=== PATIENT | male | born 1960 | race Caucasian/White ===

== ENCOUNTER 2023-06-23 10:33 | Emergency (ER) | payer SELFPAY ==
--- NOTE | ~2023-06-23 | XR_ITS ---
EXAMINATION: XR chest 1V portable DATE: 06/23/2023 11:29 INDICATION: Left chest pain. TECHNIQUE: A single frontal view of the chest was obtained. COMPARISON: Chest 2 views 05/01/2011 FINDINGS: There is mild scarring at left lung apex. There is no pneumonia, pleural effusion, or pneum othorax. The heart size is normal. IMPRESSION: 1. Stable mild scarring at left lung apex. Reviewed, dictated and finalized at location E.
--- NOTE | 2023-06-23 10:34 | ECG_ITS ---
Measurements Intervals [place] Rate: 66 P: 48 MT: 213 QRS: 55 QRSD: 91 T: 49 QT: 384 QTc: 403 Interpretive Statements SINUS RHYTHM WITH FIRST DEGREE AV BLOCK BASELINE WANDER- I, II, III, AVF, V3 BORDERLINE ECG NO PREVIOUS ECG AVAILABLE FOR COMPARISON Electronically Signed On 06-23-2023 10:58:03 CDT by Jose Vazquez D.O.
[2023-06-23 10:46] VITALS: BP 168/95; PULSE 76; RESP 12; O2SAT 99
[2023-06-23 11:03] LABS: Basophils Absolute Auto 0.1 K/mm3 (0.0-0.1); Basophils Percent Auto 1.9 % (0.2-1.2); Eosinophils Absolute Auto 0.7 K/mm3 (0-0.3); Eosinophils Percent Auto 11.3 % (0-4.4); Hematocrit 48.7 % (42.0-52.0); Hemoglobin 16.5 g/dL (14.0-18.0); Immature Granulocyte Absolute 0.02 K/mm3 (0.00-0.031); Immature Granulocyte Percent A 0.3 % (0-0.5); Lymphocytes Absolute Auto 2.06 K/mm3 (0.9-3.2); Lymphocytes Percent Auto 32.9 % (18.3-44.2); Mean Corpuscular HGB Conc 33.9 g/dl (32-36); Mean Corpuscular Volume 91.4 fl (80-100); Mean Platelet Volume 9.5 fl (7.4-10.4); Monocytes Absolute Auto 0.6 K/mm3 (0.1-0.6); Monocytes Percent Auto 9.9 % (2.6-8.5); Neutrophils Absolute Auto 2.7 K/mm3 (1.3-6.7); Neutrophils Percent Auto 43.7 % (45.5-73.1); Platelet Count Result 239 k/mm3 (150-375); Red Blood Count 5.33 M/mm3 (4.6-6.20); Red Cell Distribution Width 12.1 % (11.5-14.5); White Blood Count 6.3 K/mm3 (4.5-10.0)
[2023-06-23 11:06] LABS: Alanine Aminotransferase 58 U/L (6-50); Albumin Level 4.5 g/dL (3.5-5.1); Alkaline Phosphatase 39 U/L (38-126); Anion Gap 5 mmol/L (4-12); Aspartate Amino Transferase 41 U/L (17-59); Bilirubin,Total 0.7 mg/dL (0.2-1.3); Blood Urea Nitrogen 21 mg/dL (9-20); Calcium 9.7 mg/dL (8.4-10.2); Carbon Dioxide 29 mmol/L (22-30); Chloride 103 mmol/L (98-107); Estimated Glomerular Filt Rate > 60; Glucose 155 mg/dL (65-110); Lipase 86 U/L (23-300); Potassium 3.8 mmol/L (3.4-5.0); Sodium 137 mmol/L (137-145)
[2023-06-23 11:08] LABS: Prothrombin Time 13.6 Seconds (11.1-14.7)
[2023-06-23 11:17] LABS: Troponin I < 0.012 ng/mL (0.000-0.034)
[2023-06-23] MEDS: ASPIRIN 81 MG CHEWABLE TABLET 324 MG PO (11:28)
--- NOTE | 2023-06-23 11:28 | PC.NURSE ---
Pt stated he took 2 (81mg ) aspirin prior to arrival.
--- NOTE | 2023-06-23 13:30 | ECG_ITS ---
Measurements Intervals [place] Rate: 53 P: 32 CO: 224 QRS: 38 QRSD: 93 T: 48 QT: 412 QTc: 388 Interpretive Statements SINUS BRADYCARDIA WITH FIRST DEGREE AV BLOCK BORDERLINE ECG COMPARED TO ECG 06/23/2023 10:38:14 SINUS BRADYCARDIA NOW PRESENT Electronically Signed On 06-23-2023 16:05:19 CDT by Jose Vazquez D.O.
[2023-06-23 13:47] LABS: Troponin I < 0.012 ng/mL (0.000-0.034)
[2023-06-23 13:49] LABS: CRP < 0.5 mg/dL (<1.0); Creatine Kinase 136 U/L (55-170)
[2023-06-23 14:25] VITALS: BP 148/96; PULSE 56; RESP 16; O2SAT 98
--- NOTE | 2023-06-23 14:41 | ED.CHESTPAIN ---
HPI - Chest Pain General Chief Complaint: Chest Pain Stated Complaint: chest pain Time Seen by Provider: 06/23/23 11:04 Source: patient and family Mode of arrival: ambulatory Limitations: no limitations History of Present Illness HPI narrative: 62-year-old with a history of hypertension presents to the ER with a complaint of sharp pain in his left chest since this morning. He also stated that he was short of breath initially and his fingers were numb and tingly. Has no previous history of CAD had a stress test done 10 years ago which was unremarkable. Patient's was at the bedside stated that 3 days ago he was shoveling in yard . He denies any cough, fever or chills. MD complaint: chest pain Onset (ago): hour(s) (2) Timing of current episode: episodic Pain location: left chest Pain radiation: none Severity: mild Quality: sharp Relieving factors: nothing Exacerbating factors: nothing Risk Factors Coronary artery disease risk factors: none Related Data Home Medications Medication Instructions Recorded Confirmed alprazolam 0.5 mg tablet mg 06/23/23 06/23/23 lisinopril 10 mg tablet mg 06/23/23 Allergies Allergy/AdvReac Type Severity Reaction Status Date / Time No Known Allergies Allergy Mild Verified 06/23/23 10:53 Review of Systems Review of Systems: All systems reviewed & are unremarkable except as noted in HPI and below Constitutional: Constitutional: Reports no additional constitutional complaints Eyes: Eyes: Reports no additional eye complaints ENT: Reports system reviewed and no additional complaints, except as documented Cardiovascular: Cardiovascular: Reports as per HPI Respiratory: Respiratory: Reports as per HPI Gastrointestinal: Gastrointestinal: Reports no additional gastrointestinal complaints Musculoskeletal: Musculoskeletal: Reports no additional musculoskeletal complaints Integumentary/Breasts: Skin/Breast: Reports system reviewed and no additional complaints, except as docu Neurologic: Reports system reviewed and no additional complaints, except as documented Psychiatric: Psychiatric: Reports no additional psychiatric complaints Exam Narrative: GENERAL: Well-appearing, well-nourished, and in no acute distress. HEAD: Normocephalic, atraumatic. EYES: PERRLA and EOMI. NECK: Supple. CHEST: Clear to auscultation. No respiratory distress. HEART: Regular rate and rhythm. No murmur heard. Normal peripheral pulses. ABDOMEN: Soft, nontender, nondistended, normal active bowel sounds. EXTREMITIES: Normal range of motion. No edema. SKIN: Warm, dry, no rash. NEURO: No focal deficits. Alert and oriented x3. PSYCH: Normal mood and affect. Course Course Emergency Course: Patient had no further episodes of chest pain here in the ER. I did inform him about his EKGs, lab work. Advised him to follow up with Dr. Cruz in the next couple days for re-evaluation of his blood pressure and and also schedule a stress test. He feels comfortable going home. Vital Signs Vital signs: Vital Signs Pulse Rate 76 06/23/23 10:46 Respiratory Rate 12 06/23/23 10:46 Blood Pressure 168/95 H 06/23/23 10:46 Pulse Oximetry 99 06/23/23 10:46 Oxygen Delivery Room Air 06/23/23 10:46 Pulse Rate 56 L 06/23/23 14:25 Respiratory Rate 16 06/23/23 14:25 Blood Pressure 148/96 H 06/23/23 14:25 Pulse Oximetry 98 06/23/23 14:25 Oxygen Delivery Room Air 06/23/23 10:52 MDM - Chest Pain Differential Diagnosis Differential diagnosis: Likely unstable angina pectoris, atypical chest pain, st elevation myocardial infarction, costochondritis and chest pain Lab Data Attestation: I reviewed the patient's lab results. 06/23/23 10:49 06/23/23 10:49 Labs: Lab Results 06/23/23 06/23/23 Range/Units 10:49 13:19 WBC 6.3 (4.5-10.0) K/mm3 RBC 5.33 (4.6-6.20) M/mm3 Hgb 16.5 (14.0-18.0) g/dL Hct 48.7 (42.0-52.0) % MCV 91.4 (80-100)
== END 2023-06-23 15:04 | disposition home or self-care (01) ==
PROVIDERS: Emergency Provider Family Medicine; PCP Internal Medicine
DX: R07.9 Chest pain, unspecified (principal); R00.1 Bradycardia, unspecified
CPT/HCPCS: 36415; 71045; 80053; 82550; 83690; 84484; 85025; 85610; 85730; 86140; 93005; 99284; A9270

== ENCOUNTER 2024-08-13 08:32 | Emergency (ER) | payer MEDICARE, SELFPAY ==
--- NOTE | ~2024-08-13 | XR_ITS ---
EXAMINATION: XR chest 2V DATE: 08/13/2024 10:02 INDICATION: Chest pain and dizziness TECHNIQUE: PA and lateral views of the chest were obtained. COMPARISON: Chest radiograph dated 06/23/2023 FINDINGS: The lungs are clear with no focal airspace opacities, pulmonary edema, pleural effusion or pneumothor ax. The cardiomediastinal silhouette is normal. Moderate thoracic spondylosis. IMPRESSION: 1. No acute cardiopulmonary disease. Reviewed, dictated and finalized at location A.
--- NOTE | 2024-08-13 08:32 | ECG_ITS ---
Test Date: 2024-08-13 08:38:16 Measurements Intervals [place] Rate: 60 P: 6 MD: 209 QRS: 67 QRSD: 89 T: 64 QT: 409 QTc: 411 Interpretive Statements SINUS RHYTHM NORMAL ECG No previous ECG available for comparison Electronically Signed On 08-13-2024 13:01:22 CDT by Magnus Ramos M.D.
--- OUTSIDE RECORDS SUMMARY | 2024-08-13 08:33 | XMS_ITS | CONTINUITY OF CARE DOCUMENT ---
Author Name lanre de dios Address Unknown Organization [facility] Address [address] [place] [address] [address] [place] [address] Phone [phone] Care Team Providers Care Instructor Adjunct Pharmacy Technician Name Role Phone Skip GUILLERMO, Radha Unavailable [phone] ALBERTO VIVAR MD Unavailable [phone] ALBERTO VIVAR MD Unavailable PROBLEMS Condition Status Date Provider Notes ESSENTIAL HYPERTENSION active Radha Valdivia MD SHORTNESS OF BREATH SLEEP APNEA ON CPAP active Radha Valdivia MD FAMILY HISTORY OF HEART DISEASE active Narinder Valdivia MD ENCOUNTERS Date Type Provider Location Encounter Diag nosis - In-person encounter Office Visit Radha Valdivia MD [facility] - In-person encounter Office Visit Radha Valdivia MD [facility] ESSENTIAL HYPERTENSIONSHORTNESS OF BREATH SLEEP APNEA ON CPAPFAMILY HISTORY OF HEART DISEASE VITAL SIGNS Date Observation Value Provider blood pressure, diastolic 81 mm[Hg] Hanane Baker blood pressure, systolic 131 mm[Hg] Paula Baker pulse rate 72 /min Caroline Baker oxygen saturation, oximetry 97 % Caroline Baker respiratory rate E&M 16 /min Caroline Baker weight E&M 242 [lb_av] Caroline Baker blood pressure, diastolic 82 mm[Hg] Hanane Baker blood pressure, systolic 136 mm[Hg] Paula Baker pulse rate 65 /min Caroline Baker oxygen saturation, oximetry 97 % Caroline Baker respiratory rate E&M 16 /min Caroline Baker weight E&M 235 [lb_av] Caroline Baker ALLERGIES No Known Drug Allergies RESULTS Date Observation Value Provider Reference Range Interpretation Location platelet count 218 10*3/mm3 [facility] hematocrit, blood 46.9 % [facility] lipoprotein, beta, serum, point, quantitative, calculated 115 mg/dL [facility] cholesterol, serum 164 mg/dL [facility] alanine aminotransferase (SGPT), serum 120 1/L [facility] aspartate aminotransferase (SGOT), serum 54 1/L [facility] creatinine, serum 1.3 mg/dL [facility] potassium, serum 4.2 mmol/L [facility] sodium, serum 137 mmol/L [facility] international normalized ratio (INR) 1.3 Ilene Slade prothrombin time (patient) 12.5 s Ilene Slade HISTORY OF MEDICATION USE Medication Status Instructions Dates Provider Indications Com ments HYDROCHLOROTHIAZIDE 12.5 MG ORAL CAPSULE active ONE TAB. DAILY Caroline Baker ASPIRIN 81 MG ORAL TABLET active ONE TAB. DAILY Caroline Baker ALPRAZOLAM 0.5 MG ORAL TABLET active daily Caroline Baker LISINOPRIL 10 MG ORAL TABLET active ONE TAB. DAILY Caroline Baker SOCIAL HISTORY Date Observation Value Provider social history reviewed E&M reviewed Radha Valdivia MD social history E&M Marital Statu s: L karla with family/friends E thnicity: Radha Valdivia MD drug use none Radha Valdivia MD social history reviewed E&M reviewed Radha Valdivia MD physical exercise, f requency, days per week yes [employer] caffeine use, averag e drinks per day yes [employer] alcohol use, average drinks per day none [employer] smoking status Non-smoker [employer] MENTAL STATUS Date Observation Value Provider assessment of judgme nt and insight E&M Alert and oriented to time, place and person. Mood and affect are normal. Radha Valdivia MD assessment of judgme nt and insight E&M Alert and oriented to time, place and person. Mood and affect are normal. Radha Valdivia MD INSURANCE PROVIDERS Payer name Policy type / Coverage type Katy shankar democrat ID [employer] [facility] Other [id number] TREATMENT PLAN Date Name Performer follow up: H is updated medication list for this problem includes: Lisinopril 10 Mg Tabs (Lisinopril) ..... One tab. daily Aspirin 81 Mg Tabs (Aspirin) ..... One tab. daily Hydrochlorothiazide 12.5 Mg Caps (Hydrochlorothiazide) ..... One tab. daily BP today: 131/81 Prior BP: 136/82 (10/24/2011) E chocardiogram: Normal left ventricular systolic function. Normal left ventricular size. Mild concentric left ventricular hypertrophy. Normal left ventricular diastolic function. Normal E/E` 6.2. Left ventricular ejection fraction is estimated at 60%. The left atrium is normal in size. The mitral valve is normal in appearance and function. Aortic valve leaflets appear structurally normal. Velocities, as well as gradients across the aortic valve are normal. No evidence of aortic insufficiency. There is trace physiologic tricuspid valve regurgitation. Right ventricular systolic pressure is within normal limits. IVC is normal in size with normal respiratory response. Estimated peak pulmonary artery systolic pressure is 21.0 mmHg. - CNE (10/29/2011) C ardiac Cath: Normal coronary arteries. Normal left ventricular systolic function. - CH (10/30/2011) H CT: 46.9 (10/24/2011) Platelets: 218 (10/24/2011) C reat: 1.3 (10/24/2011) Na+: 137 (10/24/2011) K+: 4.2 (10/24/2011) SGOT (AST): 54 (10/24/2011) SGPT (ALT): 120 (10/24/2011) Radha Valdivia MD new pt.: H is updated medication list for this problem includes: Lisinopril 10 Mg Tabs (Lisinopril) ..... One tab. daily Aspirin 81 Mg Tabs (Aspirin) ..... One tab. daily Hydrochlorothiazide 12.5 Mg Caps (Hydrochlorothiazide) ..... One tab. daily BP today: 136/82 Prior BP: / () Radha Valdivia MD new pt.: H is updated medication list for this problem includes: Lisinopril 10 Mg Tabs (Lisinopril) ..... One tab. daily Aspirin 81 Mg Tabs (Aspirin) ..... One tab. daily Hydrochlorothiazide 12.5 Mg Caps (Hydrochlorothiazide) ..... One tab. daily Orders: E KG ([id number]) BP today: 136/82 Radha Valdivia MD HISTORY OF PROCEDURES Procedure Date Procedure Name Provider Procedure Notes S rubén EKG Radha Valdivia MD completed
--- OUTSIDE RECORDS SUMMARY | 2024-08-13 08:33 | XMS_ITS | Clinical Summary ---
Author Organization [facility] Address [address] [place] [id number] Care Team Providers Care Field Artillery Crewmember Name Role Phone Unavailable Primary Care Provider Unavailabl e Immunizations Immunization Administration Dates Next Due MODERNA COVID-19 (12+) MRNA, LNP-S, PF, 100 MCG/ 0.5 ML DOSE 05/11/2020,04/13/2020 Social History Tobacco Use Types Packs/Day Years Used Date Smoking Tobacco: Never Assessed Sex and Gender Information Value Date Recorded Sex Assigned at Not on file Legal Sex Male 7:17 PM CDT Gender Identity Not on file Sexual Orientation Not on file Last Filed Vital Signs Vital Sign Reading Time Taken Comments Blood Pressure 142/78 04/20/2015 1:34 PM PROCESS WORKER Pulse 70 04/20/2015 1:34 PM PROCESS WORKER Temperature - - Respiratory Rate - - Oxygen Saturation - - Inhaled Oxygen Concentration - - Weight 95.3 kg (210 lb) 04/20/2015 1:34 PM PROCESS WORKER Height 182.9 cm (6') 04/20/2015 1:34 PM PROCESS WORKER Body Mass Index 28.48 04/20/2015 1:34 PM PROCESS WORKER Plan of Treatment Health Maintenance Due Date Last Done Comments Colorectal Cancer Screening Colonoscopy (10 Years) 1958 Hepatitis C 1976 DTaP, Tdap and Td Vaccines ( 1 - Tdap) 1977 Pneumococcal Vaccine: 50+ Years (1 of 1 - PCV) 2008 Zoster Vaccines (1 of 2) 2008 COVID-19 Vaccine (3 - 2023-2 5 season) 2023 05/11/2020, 04/13/2020 RSV Immunization or 60+ Years (1 - 1-dose 75+ series) 2033 Meningococcal B Vaccine Aged Out No l onger eligible based on patient's age to complete this topic Meningococcal Vaccine Aged Out No juan jose mayte eligible based on patient's age to complete this topic RSV Immunizations Under 20 Months Aged Out No longer eligible b ased on patient's age to complete this topic
--- OUTSIDE RECORDS SUMMARY | 2024-08-13 08:33 | XMS_ITS | Clinical Summary ---
Author Organization [facility] Administrative Offices Address [address] [place] [address] Care Team Providers Care Geochemical Laboratory Technician Name Role Phone Unavailable Primary Care Provider Unavailabl e Allergies No known active allergies Medications lisinopriL (PRINIVIL) 10 mg tablet Take 1 Tablet by mouth daily. 03/12/2023 Active ALPRAZolam (XANAX) 0.5 mg tablet Take 1 Tablet by mouth 2 times daily. Active ergocalciferol (VITAMIN D2) 50,000 unit capsule Take 1 Capsule by mouth every 7 days. 11/18/2023 Active Social History Tobacco Use Types Packs/Day Years Used Date Smoking Tobacco: Never Smokeless Tobacco: Never Tobacco Cessation:Counseling Given: Not Answered Alcohol Use Standard Drinks/Week Comments Yes 0 (1 standard drink = 0.6 oz pur e alcohol) occ Feeling Safe Answer Date Recorded Are you in a relationship wi th someone who hurts you emotionally and/or physically? No 02/11/2024 Sex and Gender Information Value Date Recorded Sex Assigned at Not on file Legal Sex Male 4:27 PM CDT Gender Identity Not on file Sexual Orientation Not on file Last Filed Vital Signs Vital Sign Reading Time Taken Comments Blood Pressure 122/87 02/11/2024 2:02 PM BAIL BONDSMAN Pulse 58 02/11/2024 2:02 PM BAIL BONDSMAN Temperature 36.7 C (98.1 F) 02/11/2024 1:39 PM BAIL BONDSMAN Respiratory Rate 12 02/11/2024 1:39 PM BAIL BONDSMAN Oxygen Saturation 100% 02/11/2024 2:02 PM BAIL BONDSMAN Inhaled Oxygen Concentration - - Weight 96.6 kg (213 lb) 02/11/2024 11:16 AM BAIL BONDSMAN Height 182.9 cm (6') 02/11/2024 11:16 AM BAIL BONDSMAN Body Mass Index 28.89 02/11/2024 11:16 AM BAIL BONDSMAN Plan of Treatment Health Maintenance Due Date Last Done Comments Pre-Diabetes and Diabetes Screening 1960 DTAP/TDAP/TD VACCINES (1 - Tdap) 1977 COLORECTAL SCREENING 11/26/2003 Colorectal Cancer Screening 11/26/2003 FIT-DNA Q 3 years 11/26/2003 FIT/FOBT Q 1 year 11/26/2003 Flex Sig/CT Colonography Q 5 years 11/26/2003 PNEUMOCOCCAL VACCINE 50+ YEA RS (1 of 1 - PCV) 2008 ZOSTER VACCINE (1 of 2) 2008 INFLUENZA VACCINE (#1) 2023 9, 01/19/2018, 03/01/2015, Additional history exists RSV VACCINE (60+ or ) (1 - 1-dose 75+ series) 2033 Insurance MEDICARE PART A AND B
--- OUTSIDE RECORDS SUMMARY | 2024-08-13 08:34 | XMS_ITS | Data Portability ---
Author Organization [place] - [facility] [employer], Main Office Address [address] [place] [address] Assessment Encounter Date Assessment Date Assessment LastModified by Organization Details LastModified Time 09/11/2022 09/11/2022 No EKG functioning in clinic today blood work echo 2 week Holter follow-up 6 months go back on lisinopril he has been off for about a week [email or web address] Not available 09/11/2022 21:49:13 03/12/2023 03/12/2023 Will continue with current therapy will see me back in 6 months [email or web address] Not available 03/12/2023 21:54:26 Plan of Treatment Reminders Order Date Submit Date Provider Last Modified By Organization Details Last Modified Time Details Appointments None recorded. Lab noninvasive colorectal cancer DNA + occult blood screening, QL, stool 2022 023 [email or web address] [facility] (Cologuard Orders Only), [address], [address], [place], [address], 4 08:35:54 PSA, serum or plasma 2022 023 CHAVA Not available 3 15:12:49 noninvasive colorectal cancer DNA + occult blood screening, QL, stool 2022 023 CHAVA [facility] (Cologuard Orders Only), [address], [address], [place], [address], 3 23:50:51 CMP, serum or plasma 2022 023 [email or web address] Not available 3 09:39:50 T4, free, serum 2022 023 cyahl Not available 09:39:51 TSH, serum or plasma 2022 023 cyahl Not available 09:39:51 T3, free, serum or plasma 2022 023 cyahl Not available 09:39:51 lipid panel, serum 2022 023 CHAVA Not available 3 11:30:09 CBC w/ auto diff 2022 023 cyahl Not available 09:39:51 Referral None recorded. Procedures None recorded. Surgeries None recorded. Imaging holter monitor - 2wk holter 2022 023 [facility], [address] [place] [address], [place], [address], 3 08:53:29 , echocardiog aubrey 2022 023 [facility], [address] [place] [address] [address] [facility], [place], [address], 4 15:23:17 Medication Orders lisinopril 10 mg tablet 2022 023 [id number], [address] [place], [place], [id number], 3 17:11:06 Patient TargetsNo targets recorded. Patient InstructionsNo instructions recorded. Reason for Referral None Reported. Results Created Date Observation Date Name Description Value Unit Range Abnormal Flag Note LastModifiedBy Organization Detail LastModifiedTime 03/11/20 24 03/11/2024 COLOG UARD cologuard result Cancel led - Order d not applic able Not Available [facility] (Cologuard Orders Only) [address], [place], [address], 03/11/2024 09:17:33 09/12/19 23 09/11/2022 COLOG UARD cologuard result Cancel led - Duplic ate Order not applic able Not Available [facility] (Cologuard Orders Only) [address], [place], [address], 09/11/2022 23:50:51 08/30/19 22 08/29/2021 COLOG UARD cologuard result cancel led - order d not applic able Not Available [facility] (Cologuard Orders Only) [address], [place], [address], 08/29/2021 06:42:27 10/07/19 23 09/16/2022 francois r monit or No observ ation record ed. [facility] [address], [place], [address], 02/13/2023 20:38:44 10/10/19 23 09/16/2022 francois r monit or No observ ation record ed. [facility] [address], [place], [address], 02/13/2023 20:38:45 06/23/19 24 06/23/2023 XR, chest No observ ation record ed. [email or web address] [address], [place], [address], 09/28/2023 09:15:53 Result Notes None recorded. Problems Name Problem SNOMED Code Status Onset Date Resolution Date Notes Provider Name and Address Organization Details Recorded Time Benign essential hypertension 7583390 Active Not Available [facility] 3 14:55:41 Backache 318614244 Active 2022 Not Available [facility] 3 14:55:41 Liver enzymes outside reference range 391994493 Active Not Available [facility] 3 14:55:41 [place] 458150124 Active Not Available [facility] 3 14:55:41 Anxiety 33580852 Active Not Available [facility] 3 14:55:41 Disturbance in sleep behavior 41229580 Active Not Available [facility] 14:55:41 Upper respiratory infection 98021869 Active 2022 Not Available [facility] 14:55:41 Bradycardia 70836477 Active 2022 Trevon Sharp, MEGHANA null, [place] [facility] 17:36:54 Problem Notes None recorded. Procedures Surgical History Date Name Laterality Status Provider Name and Address Organization Details Recorded Time Back Surgery completed Not Available [facility] 05/28/2022 14:54:10 Knee Surgery completed Not Available [facility] 05/28/2022 14:54:10 Elbow arthroscopy/s urgery completed Not Available [facility] 05/28/2022 14:54:10 Imaging Results Imaging Date Name Status LastModified by Organiz ation Details LastModified Time 09/16/2022 holter monitor completed [email or web address] [facility] [address], [place], [address], 02/13/2023 20:38:44 09/16/2022 holter monitor completed [facility] [address], [place], [address], 02/13/2023 20:38:45 06/23/2023 XR, chest completed [email or web address] [facility] [address] [facility] [address], [place], [address], 09/28/2023 09:15:53 Procedure Notes None recorded. Medical Equipment None Reported. Allergies No known drug allergies Medications Name Sig Start Date Stop Date Status Note LastModified by Organization Details LastModified Time amoxicillin 500 mg capsule TK 1 C PO QID TAT 03/01 completed Not Available Not Available Not Available azithromyci n 250 mg tablet Take 1 dose pk by oral route as directed. 03/12 completed Not Available Not Available Not Available Nystop 100,000 unit/gram topical powder APPLY TOPICALLY TO THE AFFECTED AREA TWICE DAILY 03/07 completed Not Available Not Available Not Available prednisone 20 mg tablet 07/21 completed Not Available Not Available Not Available clindamycin HCl 150 mg capsule 07/21 completed Not Available Not Available Not Available valacyclovi r 500 mg tablet TAKE 1 TABLET BY MOUTH EVERY DAY 05/20 completed Not Available Not Available Not Available ciprofloxac in 500 mg tablet 07/21 completed Not Available Not Available Not Available hydrocodone 10 mg-acetamin ophen 325 mg tablet 11/12 completed Not Available Not Available Not Available alprazolam 0.5 mg tablet TAKE 1 TABLET BY MOUTH TWICE DAILY active Not Available Not Available No t Available amoxicillin 875 mg tablet 05/20 completed Not Available Not Available Not Available gentamicin 0.3 % eye drops 05/20 completed Not Available Not Available Not Available cephalexin 500 mg capsule 11/18 completed Not Available Not Available Not Available tobramycin 0.3 % eye drops 05/20 completed Not Available Not Available Not Available lisinopril 10 mg tablet TAKE 1 TABLET BY MOUTH DAILY 2022 active Not Available Not Available Not Avai lable hydrochloro thiazide 25 mg tablet TK 1 T PO ONCE D. CAN USE ON DAYS THAT SWELLING IS WORSE 03/01 completed Not Available Not Available Not Available diazepam 5 mg tablet TK 1/2 T PO BID 03/06 completed Not Available Not Available Not Available amoxicillin 875 mg-potassiu m clavulanate 125 mg tablet TK 1 T PO Q 12 H TAT 11/12 completed Not Available Not Available Not Available Cialis 20 mg tablet 1 tablet 30 mins before intercour se no more then 1 in 24 hours active Not Available Not Available No t Available sildenafil (pulmonary hypertensio n) 20 mg tablet take 3tablets 30mins before intercour se 03/06 completed Not Available Not Available Not Available zolpidem ER 12.5 mg tablet,exte nded release,mul tiphase TAKE 1 TABLET BY MOUTH EVERY NIGHT AT BEDTIME active Not Available Not Available No t Available BD Ultra-Fine Short Pen Needle 31 gauge x 08/12 completed Not Available Not Available Not Available Zirgan 0.15 % eye gel APPLY TO BOTH EYES FOUR TIMES DAILY 05/20 completed Not Available Not Available Not Available Vicodin ES 7.5 mg-300 mg tablet 08/10 completed Not Available Not Available Not Available Tresiba FlexTouch U-200 insulin 200 unit/mL (3 mL) subcutaneou s pen 07/21 completed Not Available Not Available Not Available Vitals Date Recorded Body mass index (BMI) Body height Heart rate Body temperature Body weight Systolic blood pressure Diastolic blood pressure Provider Name and Address Organization Details Last Updated DateTime 1 30.9 kg/m2 185.42 cm 72 /min 97.8 [degF] 276266. 61 g 130 mm[Hg] 80 mm[Hg] Not Available [facility] 3 14:54:59 Date Recorded Body mass index (BMI) Body height Heart rate Body temperature Body weight Systolic blood pressure Diastolic blood pressure Provider Name and Address Organization Details Last Updated DateTime 2 31 kg/m2 185.42 cm 58 /min 96.3 [degF] 674209. 21 g 142 mm[Hg] 80 mm[Hg] Not Available [facility] 3 14:54:59 Date Recorded Body mass index (BMI) Body height Heart rate Body temperature Body weight Systolic blood pressure Diastolic blood pressure Provider Name and Address Organization Details Last Updated DateTime 2 30.9 kg/m2 185.42 cm 64 /min 98.4 [degF] 179744. 61 g 122 mm[Hg] 74 mm[Hg] Not Available [facility] 3 14:54:59 Date Recorded Body height Body mass index (BMI) Body weight Body temperature Heart rate Systolic blood pressure Diastolic blood pressure Provider Name and Address Organization Details Last Updated DateTime 3 185.42 cm 26.7 kg/m2 68223.6 6 g 97.8 [degF] 58 /min 140 mm[Hg] 90 mm[Hg] MEGHANA Barbosa Kashmi 3 15:35:33 Date Recorded Body height Body mass index (BMI) Body weight Body temperature Heart rate Oxygen saturation Oxygen saturation in Arterial blood by Pulse oximetry Systolic blood pressure Diastolic blood pressure Provider Name and Address Organization Details Last Updated DateTime 3 185.42 cm 27.8 kg/m2 16579.9 9 g 98.1 [degF] 57 /min 98 % 98 % 144 mm[Hg] 88 mm[Hg] Carrie sommers CMA Kashmi 15:19:42 Social History Question Answer Notes LastModified by Organizat ion Details LastModified Time Tobacco Smoking Status Never Smoker Not Available [facility] 05/28/2022 14:54:01 Do You Have An Advance Directive? No MIGRATION.71622 06841 Information not available 05/28/2022 Do You Wear A Helmet When Biking? Yes MIGRATION.74808 27760 Information not available 05/28/2022 Are You Blind Or Do You Have Difficulty Seeing? No MIGRATION.07229 11296 Information not available 05/28/2022 What Is Your Level Of Caffeine Consumption? Moderate MIGRATION.74507 45862 Information not available 05/28/2022 How Much Tobacco Do You Chew? None MIGRATION.96247 28436 Information not available 05/28/2022 In The 14 Days Before Symptom Onset, Have You Had Close Contact With A Laboratory-confi rmed COVID-19 While That Case Was Ill? No MIGRATION.29720 00175 Information not available 05/28/2022 In The 14 Days Before Symptom Onset, Have You Had Close Contact With A Person Who Is Under Investigation For COVID-19 While That Person Was Ill? No MIGRATION.59414 70988 Information not available 05/28/2022 Are You Deaf Or Do You Have Serious Difficulty Hearing? No MIGRATION.82151 78757 Information not available 05/28/2022 What Type Of Diet Are You Following? REGULAR MIGRATION.24270 64214 Information not available 05/28/2022 Which Illicit Or Recreational Drugs Have You Used? None MIGRATION.92830 41798 Information not available 05/28/2022 What Is The Highest Grade Or Level Of School You Have Completed Or The Highest Degree You Have Received? [id number] MIGRATION.98725 51837 Information not available 05/28/2022 Have There Been Any Changes To Your Family Or Social Situation? No MIGRATION.59920 14812 Information not available 05/28/2022 What Is The Fluoride Status Of Your Home? Unknown MIGRATION.22369 26196 Information not available 05/28/2022 Are There Any Guns Present In Your Home? No MIGRATION.64872 94892 Information not available 05/28/2022 Do You Use Insect Repellent Routinely? No MIGRATION.63553 62335 Information not available 05/28/2022 Where Do You Live? [place] MIGRATION.91742 91972 Information not available 05/28/2022 Do You Have A Medical Power Of Pcmh Specialist? No MIGRATION.17678 13485 Information not available 05/28/2022 What Was The Date Of Your Most Recent Tobacco Screening? 09/11/2022 [email or web address] Information not available 09/11/2022 Have You Ever Been Counseled For Unhealthy Alcohol Use? No MIGRATION.05321 24881 Information not available 05/28/2022 Do You Have Any Pets? No MIGRATION.23424 98824 Information not available 05/28/2022 What Is Your Relationship Status? Single MIGRATION.02773 10120 Information not available 05/28/2022 Do You Use Your Seat Belt Or Car Seat Routinely? Yes MIGRATION.01112 27164 Information not available 05/28/2022 Do You Have Smoke And Carbon Monoxide Detectors In Your Home? Yes MIGRATION.21072 10997 Information not available 05/28/2022 Are You Passively Exposed To Smoke? No MIGRATION.70395 76799 Information not available 05/28/2022 Are There Any Smokers In Your House? No MIGRATION.29915 34701 Information not available 05/28/2022 How Much Tobacco Do You Smoke? No MIGRATION.65832 50514 Information not available 05/28/2022 What Types Of Sporting Activities Do You Participate In? Golf MIGRATION.14182 42168 Information not available 05/28/2022 Do You Use Sunscreen Routinely? Yes MIGRATION.01753 22901 Information not available 05/28/2022 Has Tobacco Cessation Counseling Been Provided? No Not Needed-ne bunny Smoked MIGRATION.14504 48426 Information not available 05/28/2022 How Many Years Have You Smoked Tobacco? 0 MIGRATION.59973 15507 Information not available 05/28/2022 Have You Recently Traveled Abroad? No MIGRATION.94969 89297 Information not available 05/28/2022 Do You Have Difficulty Walking Or Climbing Stairs? No MIGRATION.93470 48121 Information not available 05/28/2022 Do You Have Any Dietary Restrictions? No MIGRATION.51397 40685 Information not available 05/28/2022 Sex: Male Functional Status Question Answer Note LastModified by Organizat ion Details LastModified Time Do you use any illicit or recreational drugs? No MIGRATION.088149 1969 Information not available 05/28/2022 Do you or have you ever used any other forms of tobacco or nicotine? No MIGRATION.883150 2917 Information not available 05/28/2022 What is your level of alcohol consumption? Occasional MIGRATION.198083 1870 Information not available 05/28/2022 Do you or have you ever used smokeless tobacco? Never used smokeless tobacco MIGRATION.632016 0414 Information not available 05/28/2022 Do you have difficulty doing errands alone? No MIGRATION.627854 2100 Information not available 05/28/2022 What is your occupation? [employer] MIGRATION.321048 2310 Information not available 05/28/2022 Do you have difficulty dressing or bathing? No MIGRATION.413644 3383 Information not available 05/28/2022 Do you or have you ever used e-cigarettes or vape? Never used electronic cigarettes MIGRATION.198757 7243 Information not available 05/28/2022 What is your exercise level? Heavy MIGRATION.083141 5293 Information not available 05/28/2022 Mental Status Question Answer Note LastModified by Organizat ion Details LastModified Time Do you feel stressed (tense, restless, nervous, or anxious, or unable to sleep at night)? [id number] MIGRATION.47857310 26 Information not available 05/28/2022 Do you have difficulty concentrating, remembering or making decisions? No MIGRATION.68875453 26 Information not available 05/28/2022 Family History Relationship Description Onset Age of this Age Resolved Age Notes LastModified by Organization Details LastModified Time Brother Diabetes mellitus MIGRATION.[id number] Not available 05/28/2022 14:54:11 Medical History Condition Response NERVE DISEASE N BLINDNESS N RHEUMATIC FEVER N KIDNEY STONES N BLADDER PROBLEMS N MRSA N OTHER # 1 N POLIO N LUNG DISEASE/DISORDER N RADIATION / CHEMOTHERAPY N COPD N Other # 2 N BLOOD DISEASES N EAR OR HEARING PROBLEMS N MUMPS N BOWEL PROBLEMS N DEPRESSION (INCLUDING POST ) N STROKE/TIA N ULCERS N BENIGN PROSTATIC HYPERPLASIA N MEASLES N MYOCARDIAL INFARCTION N OBESITY N GERD/NAUSEA N ANEURYSM N URINARY/BLADDER/KIDNEY PROBLEMS N CORONARY ARTERY DISEASE (CAD) N ADDICTION CONCERNS N Impotence N ENDOMETRIOSIS N USE OF BLOOD THINNERS N SKIN PROBLEMS N GASTROINTESTINAL DISORDER N PERIPHERAL VASCULAR DISEASE N MUSCLE,JOINT OR BONE PROBLEMS N GASTROINTESTINAL BLEEDING N BLOOD CLOTS N ASTHMA N CATARACTS N ERECTILE DYSFUNCTION N VARICOSITIES N GI PROBLEMS N Low Testosterone N INFERTILITY N AIDS/HIV N CHEMOTHERAPY / RADIATION N LIVER DISEASE N MALE HYPOGONADISM N HYPERTENSION Y Deficiency N TOURETTE'S N ANXIETY DISORDER Y BLOOD TRANSFUSION N ANEMIA/BLOOD DISORDER N CHRONIC EAR INFECTIONS N BRONCHITIS N TUBERCULOSIS N GLAUCOMA N FOOT PROBLEM N DIVERTICULITIS N SLEEP APNEA N CHICKENPOX N INFECTIOUS DISEASE N PROSTATE N HEART ARRHYTHMIA N INSOMNIA N HIGH CHOLESTEROL / HYPERLIPIDEMIA N EYE PROBLEMS N HYPERTHYROIDISM N EDEMA N CHRONIC PAIN SYNDROME N HYPOTHYROIDISM N CONSTIPATION N CAROTID BLOCKAGE N BACK / NECK PROBLEMS N HAVE YOU BEEN HOSPITALIZED OR SEEN IN [facility] IN THE PAST YEAR ? N ATHEROSCLEROSIS N BREAST PROBLEMS N DIALYSIS N ECZEMA N OSTEOPOROSIS N ARTHRITIS N APPENDICITIS N DIABETES, TYPE N BAD TEETH N ENT N HEARTBURN / REFLUX N AUTISM SPECTRUM DISORDER (ASD) N HEPATITIS / LIVER DISEASE N GOUT N SLEEP DISORDER Y ALZHEIMER'S DISEASE N Brain Problems N DEMENTIA N HERPES N SEIZURES/EPILEPSY N HEADACHES/MIGRAINES N VASCULAR DISEASE N PACEMAKER N Blood Disorder N DIZZINESS N HEART DISEASE/HEART PROBLEMS N KIDNEY DISEASE N MULTIPLE SCLEROSIS N CANCER: SPECIFY N CARDIAC ARRHYTHMIA N ATRIAL FIBRILLATION N Gall Stones N PULMONARY EMBOLISM N AUTOIMMUNE DISEASE N Immunizations Vaccine Type Date Status Note Provider Nam e and Address Organization Details Recorded Time COVID-19, mRNA, LNP-S, PF, 30 mcg/0.3 mL dose 1 completed Carrie Reza CMA null, Kashmi 03/12/2023 15:19:51 COVID-19, mRNA, LNP-S, PF, 30 mcg/0.3 mL dose 1 completed Carrie Reza CMA null, Kashmi 03/12/2023 15:19:51 Influenza, split virus, quadrivalent, preservative 9 completed Not Available [facility] 05/28/2022 14:57:08 Influenza, split virus, quadrivalent, PF 5 completed Not Available [facility] 05/28/2022 14:57:08 Influenza, split virus, quadrivalent, PF 8 completed Not Available [facility] 05/28/2022 14:57:08 Influenza, split virus, trivalent, PF 4 completed Carrie Reza CMA null, Kashmi 03/12/2023 15:19:51 Past Encounters Encounter ID Performer Location Encounter Start Date Encounter Closed Date Diagnosis/Indication Diagnosis SNOMED-CT Code Diagnosis ICD10 Code Diagnosis Note [id number] Magdy Cruz MD [facility] Internal Med [facility] [address] [facility], [facility] [address] [place] [address] 08/29/2020 00:00:00 09/08/2020 13:46:23 [id number] Magdy Cruz MD [facility] Internal Med [place] [address] [place] [address] [place] [address] 03/07/2021 00:00:00 03/29/2021 12:54:18 [id number] Magdy Cruz MD [facility] Internal Med [place] [address] [place] [address] y , [place] [address] 08/29/2021 00:00:00 10/02/2021 22:18:10 [id number] Magdy Cruz MD [facility] Internal Med [place] [address] [place] [address] [place] [address] 03/06/2022 00:00:00 03/07/2022 15:48:18 [id number] Magdy Cruz MD [facility] Internal Med [place] [address] [place] [address] y , [place] [address] 09/11/2022 15:20:49 09/11/2022 17:35:43 Benign essential hypertension 4420145 I10 Bradycardia 85554184 R00 .1 Screening for malignant neoplasm of prostate 223865676 Z12.5 Screening for malignant neoplasm of colon 802223293 Z12.11 [id number] Magdy Cruz MD [facility] Internal Med [place] [address] [place] [address] [place] [address] 03/12/2023 15:03:11 03/12/2023 16:33:53 Renewal of prescription 080675850 Z76.0 Screening for malignant neoplasm of colon 082121043 Z12.11 Benign ess ential hypertension 3705061 I10 Anxiety 76412208 F41.9 Health Concerns Section Related Observation LastModified by Organization Detai ls LastModified Time None Recorded Concern Status LastModified by Organization Details LastModified Time None Recorded Advance Directives Directive N: Payers Encounter Date Sequence Insurance Name Policy Number Policy Herrera Covered Member ID Herrera Member ID Guarantor Name 09/11/2022 1 [facility] Abimaelaustin Rivas [id number] Abimael Rivas 03/12/2023 1 *SELF PAY* By austin Rivas Notes Date Note Type Note Provider Name and Address Organization Details Recorded Time 3 text/html Hypertension no headache no dizzinessBradycardia heart rates been down to 40 asymptomaticAnxiety stableVoluntarily lost 20 lb Magdy Cruz MD [address], [employer], [place], [address], Kashmi 09/11/2022 21:49:39 3 text/html Anxiety stable with no side effects hypertension no chest pain or shortness of breath due for Cologuard Magdy Cruz MD [address], [address] [employer], [place], [address], Kashmi 03/12/2023 21:55:36
[2024-08-13 08:55] VITALS: BP 179/91; PULSE 62; RESP 18; TEMP 37.1; O2SAT 100
[2024-08-13 09:05] LABS: Basophils Absolute Auto 0.1 K/mm3 (0.0-0.1); Basophils Percent Auto 1.3 % (0.2-1.2); Eosinophils Absolute Auto 0.3 K/mm3 (0-0.3); Eosinophils Percent Auto 6.1 % (0-4.4); Hematocrit 46.1 % (42.0-52.0); Hemoglobin 15.1 g/dL (14.0-18.0); Immature Granulocyte Absolute 0.01 K/mm3 (0.00-0.031); Immature Granulocyte Percent A 0.2 % (0-0.5); Lymphocytes Absolute Auto 1.68 K/mm3 (0.9-3.2); Lymphocytes Percent Auto 35.2 % (18.3-44.2); Mean Corpuscular HGB Conc 32.8 g/dl (32-36); Mean Corpuscular Hemoglobin 30.6 pg (26-34); Mean Corpuscular Volume 93.5 fl (80-100); Mean Platelet Volume 9.8 fl (7.4-10.4); Monocytes Absolute Auto 0.5 K/mm3 (0.1-0.6); Monocytes Percent Auto 10.1 % (2.6-8.5); Neutrophils Absolute Auto 2.3 K/mm3 (1.3-6.7); Neutrophils Percent Auto 47.1 % (45.5-73.1); Platelet Count Result 233 k/mm3 (150-375); Red Blood Count 4.93 M/mm3 (4.6-6.20); Red Cell Distribution Width 12.3 % (11.5-14.5); White Blood Count 4.8 K/mm3 (4.5-10.0)
[2024-08-13 09:16] LABS: Partial Thromboplastin Time 26.4 Seconds (22.3-36.8); Prothrombin Time 13.2 Seconds (11.1-14.7)
[2024-08-13 09:18] LABS: Alanine Aminotransferase 36 U/L (6-50); Albumin Level 4.5 g/dL (3.5-5.1); Alkaline Phosphatase 45 U/L (38-126); Anion Gap 10 mmol/L (4-12); Aspartate Amino Transferase 44 U/L (17-59); Bilirubin,Total 0.5 mg/dL (0.2-1.3); Blood Urea Nitrogen 29 mg/dL (9-20); Calcium 9.5 mg/dL (8.4-10.2); Carbon Dioxide 26 mmol/L (22-30); Chloride 105 mmol/L (98-107); Estimated CRCL calculation 59 ml/min; Estimated Glomerular Filt Rate 59; Glucose 109 mg/dL (65-110); Lipase 122 U/L (23-300); Potassium 3.8 mmol/L (3.4-5.0); Sodium 141 mmol/L (137-145)
[2024-08-13 09:30] LABS: Troponin I < 0.012 ng/mL (0.000-0.034)
[2024-08-13 09:38] VITALS: BP 155/87; PULSE 59; RESP 19; O2SAT 99
--- OUTSIDE RECORDS SUMMARY | 2024-08-13 11:04 | XMS_ITS | Clinical Summary ---
Author Organization [facility] Address [address] [place] [address] Care Team Providers Care [employer] Machinist Name Role Phone Unavailable Primary Care Provider [...] Comments Blood Pressure 142/78 04/20/2015 1:34 PM [employer]AGED FREIGHT INSPECTOR Pulse 70 04/20/2015 1:34 PM [employer]AGED FREIGHT INSPECTOR Temperature - - Respiratory Rate - - Oxygen Saturation - - Inhaled Oxygen Concentration - - Weight 95.3 kg (210 lb) 04/20/2015 1:34 PM [employer]AGED FREIGHT INSPECTOR Height 182.9 cm (6') 04/20/2015 1:34 PM DAMAGED FREIGHT INSPECTOR Body Mass Index 28.48 04/20/2015 1:34 PM DAMAGED FREIGHT INSPECTOR Plan of Treatment Health Maintenance Due Date [...]
--- OUTSIDE RECORDS SUMMARY | 2024-08-13 11:04 | XMS_ITS | CONTINUITY OF CARE DOCUMENT ---
Author Name lanre de dios Address Unknown Organization [facility] Address [address] [place] [address] [address] [place] [address] Phone [phone] Care Team Providers Care Rat Trapper Name Role Phone Skip GUILLERMO, Radha Unavailable [phone] ALBERTO VIVAR MD Unavailable ALBERTO VIVAR MD Unavailable PROBLEMS Condition Status Date Provider Notes ESSENTIAL HYPERTENSION active Radha Valdivia MD SHORTNESS OF BREATH SLEEP APNEA ON CPAP active Radha Valdivia MD FAMILY HISTORY OF HEART DISEASE active Narinder Valdivia MD ENCOUNTERS Date Type Provider Location Encounter Diag nosis - In-person encounter Office Visit Radha Valdivia MD [facility] - In-person encounter Office Visit Radha Valdivia MD [facility] ESSENTIAL HYPERTENSIONSHORTNESS OF BREATH SLEEP APNEA [...] Range Interpretation Location platelet count 218 10*3/mm3 [facility] hematocrit, blood 46.9 % [facility] lipoprotein, beta, serum, point, quantitative, calculated 115 mg/dL [facility] cholesterol, serum 164 mg/dL [facility] alanine aminotransferase (SGPT), serum 120 1/L [facility] aspartate aminotransferase (SGOT), serum 54 1/L [facility] creatinine, serum 1.3 mg/dL [facility] potassium, serum 4.2 mmol/L [facility] sodium, serum 137 mmol/L [facility] international normalized ratio (INR) 1.3 Ilene Slade [...] Policy type / Coverage type Katy shankar [employer] party ID [employer] [facility] Other [id number] TREATMENT PLAN Date Name Performer follow up: [...] ..... One tab. daily Orders: E KG ([id number]) BP today: 136/82 Radha Valdivia MD HISTORY OF PROCEDURES Procedure Date Procedure Name Provider Procedure Notes S rubén EKG Radha Valdivia MD completed
--- OUTSIDE RECORDS SUMMARY | 2024-08-13 11:04 | XMS_ITS | Clinical Summary ---
Author Organization [facility] Administrative Offices Address [address] [place] [address] Care Team Providers Care Fishing Accessories Maker Name Role Phone Unavailable Primary Care Provider [...] Comments Blood Pressure 122/87 02/11/2024 2:02 PM [employer]CROFIL[employer]ER[employer] OPERATOR Pulse 58 02/11/2024 2:02 PM MICROFILM [employer]ERA OPERATOR Temperature 36.7 C (98.1 F) 02/11/2024 1:39 PM [employer]CROFILM [employer]ERA OPERATOR Respiratory Rate 12 02/11/2024 1:39 PM MICROFILM CAMERA OPERATOR Oxygen Saturation 100% 02/11/2024 2:02 PM MICROFILM CAMERA OPERATOR Inhaled Oxygen Concentration - - Weight 96.6 kg (213 lb) 02/11/2024 11:16 AM MICROFILM CAMERA OPERATOR Height 182.9 cm (6') 02/11/2024 11:16 AM MICROFILM CAMERA OPERATOR Body Mass Index 28.89 02/11/2024 11:16 AM MICROFILM CAMERA OPERATOR Plan of Treatment Health Maintenance Due Date [...]
--- NOTE | 2024-08-13 11:52 | ECG_ITS ---
Test Date: 2024-08-13 12:16:52 Measurements Intervals [place] Rate: 52 P: 53 CA: 226 QRS: 58 QRSD: 85 T: 59 QT: 421 QTc: 395 Interpretive Statements SINUS BRADYCARDIA WITH FIRST DEGREE AV BLOCK ABNORMAL ECG Compared to ECG 08/13/2024 08:38:16 First degree AV block now present Sinus rhythm no longer present Electronically Signed On 08-13-2024 13:02:13 CDT by Magnus Ramos M.D.
[2024-08-13 12:33] LABS: Troponin I < 0.012 ng/mL (0.000-0.034)
--- NOTE | 2024-08-13 13:12 | ED_ITS ---
HPI - Chest Pain General Chief Complaint: Chest Pain Stated Complaint: CP, dizzy Time Seen by Provider: 08/13/24 10:35 History of Present Illness HPI narrative: Patient is a 63-year-old male who presents to the ER with dizziness and chest pain. Reports over last couple days he has been getting dizzy. Today was markedly worse. He felt the dizziness it and then he developed some left-sided chest pain. Mild nausea. No vomiting. No ringing in the ears. Unsure if he can not reproduce the dizziness. No history of exertional chest pain or heart disease. Patient reports he did have a couple drinks of alcohol last night which is atypical for. He does have hypertension. Related Data Home Medications Medication Instructions Recorded Confirmed Last Taken Type alprazolam 0.5 mg tablet mg 06/23/23 06/23/23 Unknown History lisinopril 10 mg tablet mg 06/23/23 Unknown History Allergies Allergy/AdvReac Type Severity Reaction Status Date / Time No Known Allergies Allergy Mild Verified 08/13/24 09:37 Review of Systems 2 Review of Systems: All systems reviewed & are unremarkable except as noted in HPI and below Constitutional: Constitutional: Reports no additional constitutional complaints ENT: Reports system reviewed and no additional complaints, except as documented Cardiovascular: Cardiovascular: Reports no additional cardiovascular complaints Respiratory: Respiratory: Reports no additional respiratory complaints [facility] Past Medical History Medical History (Updated 08/13/24 @ 19:33 by Gerhard Fowler MD) Hypertension Surgical History Surgical History (Updated 08/13/24 @ 19:33 by Gerhard Fowler MD) No pertinent past surgical history Exam 2 Narrative: GENERAL: Well-appearing, well-nourished, and in no acute distress. HEAD: Normocephalic, atraumatic. EYES: PERRL and EOMI. ENT: Mucous membranes moist. Mild palpable left ear manipulation. TMs normal bilaterally. CHEST: Clear to auscultation. No respiratory distress. HEART: Regular rate and rhythm. Normal peripheral pulses. ABDOMEN: Soft, nontender, nondistended. EXTREMITIES: Normal range of motion. No edema. SKIN: Warm, dry, no rash. NEURO: Alert and oriented x3. PSYCH: Normal mood and affect. Course Course Emergency Course: No chest pain here. Troponin negative x2. Patient feels improved after having his left ear popped. Discharged with meclizine. Discussed return precautions. Vital Signs Vital signs: Vital Signs Temperature 98.7 F 08/13/24 08:55 Pulse Rate 62 08/13/24 08:55 Respiratory Rate 18 08/13/24 08:55 Blood Pressure 179/91 H 08/13/24 08:55 Pulse Oximetry 100 08/13/24 08:55 Oxygen Delivery Room Air 08/13/24 08:55 Temperature 98.4 F 08/13/24 13:26 Pulse Rate 68 08/13/24 13:26 Respiratory Rate 16 08/13/24 13:26 Blood Pressure 127/77 08/13/24 13:26 Pulse Oximetry 100 08/13/24 13:26 Oxygen Delivery Room Air 08/13/24 10:25 MDM - Chest Pain Lab Data 08/13/24 08:49 08/13/24 08:49 Labs: Lab Results 08/13/24 08/13/24 Range/Units 08:49 11:58 WBC 4.8 (4.5-10.0) K/mm3 RBC 4.93 (4.6-6.20) M/mm3 Hgb 15.1 (14.0-18.0) g/dL Hct 46.1 (42.0-52.0) % MCV 93.5 (80-100) fl MCH 30.6 (26-34) pg MCHC 32.8 (32-36) g/dl RDW 12.3 (11.5-14.5) % Plt Count 233 (150-375) k/mm3 MPV 9.8 (7.4-10.4) fl Immature Gran % (Auto) 0.2 (0-0.5) % Neut % (Auto) 47.1 (45.5-73.1) % Lymph % (Auto) 35.2 (18.3-44.2) % [place] % (Auto) 10.1 H (2.6-8.5) % Eos % (Auto) 6.1 H (0-4.4) % Baso % (Auto) 1.3 H (0.2-1.2) % Lymph # (Auto) 1.68 (0.9-3.2) K/mm3 [place] # (Auto) 0.5 (0.1-0.6) K/mm3 Eos # (Auto) 0.3 (0-0.3) K/mm3 Baso # (Auto) 0.1 (0.0-0.1) K/mm3 Abs Immat Gran (auto) 0.01 (0.00-0.031) K/mm3 Absolute Neuts (auto) 2.3 (1.3-6.7) K/mm3 Absolute Nucleated RBC 0.000 (0.0-0.012) K/mm3 Nucleated RBC % 0.0 (0.0-0.2) % PT 13.2 (11.1-14.7) Seconds INR 1.0 APTT 26.4 (22.3-36.8) Seconds Sodium 141 (137-145) mmol/L Potassium 3.8 (3.4-5.0) mmol/L Chloride 105 (98-107) mmol/L Carbon Dioxide 26 (22-30) mmol/L Anion Gap 10 (4-12) mmol/L BUN 29 H (9-20) mg/dL Creatinine 1.23 (0.7-1.3) mg/dL Estim Creat Clear Calc 59 ml/min Estimated GFR 59 (59 - ) Glucose 109 (65-110) mg/dL Calcium 9.5 (8.4-10.2) mg/dL Total Bilirubin 0.5 (0.2-1.3) mg/dL AST 44 (17-59) U/L ALT 36 (6-50) U/L Alkaline Phosphatase 45 (38-126) U/L Troponin I < 0.012 < 0.012 (0.000-0.034) ng/mL Total Protein 8.0 (6.3-8.2) g/dL Albumin 4.5 (3.5-5.1) g/dL Lipase 122 (23-300) U/L Imaging Data Radiologist's impression: ITS Impressions Chest X-Ray 08/13/24 10:11 IMPRESSION: 1. No acute cardiopulmonary disease. ECG Data EKG #1: ECG completion date: 08/13/24 ECG completion time: 08:38 EKG Interpretation: normal rate (60), sinus rhythm, no ST changes, normal QRS, normal QT and NL axis Discharge Plan Discharge Clinical Impression: Vertigo, Chest pain Patient Disposition: Home Condition: Stable Instructions: Chest Pain (ED), Vertigo (ED) Additional Instructions: Please return to the emergency department if you develop severe and persistent chest pain, difficulty breathing, dizziness, leg swelling or if you are coughing up blood as these can be signs of a medical emergency. Please call your doctor for a follow up appointment to determine the need for further testing. Patient Language: Yoruba Prescriptions: New meclizine 25 mg tablet 25 mg PO BID PRN (Reason: dizziness) Qty: 14 0RF No Action alprazolam 0.5 mg tablet lisinopril 10 mg tablet Follow-up/Referrals: Anthony,MD Magdy [Primary Care Provider] - 1 Week Quality HEART score for chest pain patients History: slightly suspicious ECG: normal Age: > 45 and < 65 years Risk factors: 1 or 2 risk factors Troponin: < or = to 1x normal limit Heart score: 2
[2024-08-13 13:26] VITALS: BP 127/77; PULSE 68; RESP 16; TEMP 36.9; O2SAT 100
== END 2024-08-13 13:27 | disposition home or self-care (01) ==
PROVIDERS: Student in an Organized Health Care Education/Training Program; Emergency Provider Emergency Medicine; PCP Internal Medicine
DX: R07.9 Chest pain, unspecified (principal); R42 Dizziness and giddiness; I10 Essential (primary) hypertension; R00.1 Bradycardia, unspecified; I44.0 Atrioventricular block, first degree
CPT/HCPCS: 36415; 71046; 80053; 83690; 84484; 85025; 85610; 85730; 93005; 99284